=== PATIENT | female | born 1980 | race Caucasian/White ===

== ENCOUNTER 2016-02-13 14:52 | Emergency (ER) | payer SELFPAY ==
[~2016-02-13] VITALS: Wt 68.0 kg
[~2016-02-13 14:52] MED LIST: FERR325C PO; IRON1TAB78 PO; NITR-58 PO; ONDA4TAB8 PO
== END 2016-02-13 17:42 | disposition left against medical advice (07) ==
LOC: FTE 14:52
DX: Z53.21 Procedure and treatment not carried out due to patient leaving prior to being seen by health care provider (principal)

== ENCOUNTER 2016-03-24 11:33 | Outpatient (CLI) | payer MEDICAID ==
[~2016-03-24] VITALS: Ht 162.6 cm; Wt 71.6 kg
[~2016-03-24 11:33] MED LIST changes: -NITR-58 PO
[2016-03-24 11:40] VITALS: BP 107/69; PULSE 86; RESP 17
[2016-03-24 11:41] VITALS: Ht 162.6 cm; Wt 71.6 kg
--- NOTE | 2016-03-24 13:31 | TRIAGE ---
OB Triage Datetime Report Generated by CPN: 03/24/2016 13:31 Datetime: 03/24/2016 13:00 Maternal Assessment Level of Consciousness: Fully Conscious DTR's/Clonus: DTRs 2+; No Clonus Headache: Denies Blurred Vision: No Nausea/Vomiting: Denies RUQ Epigastric Pain: Denies Facial Edema: None Labor Evaluation Frequency: 0 Monitor Mode: External Pattern: Normal: <= 5 Contractions in 10 Minutes Resting Tone [place]: Relaxed Heart Rate FHR Baseline Rate: 135 Monitor Mode: External US FHR Baseline Changes: No Baseline Change Variability: Moderate 6-25 bpm Accelerations: 15X15 Decelerations: None Category: Category I Pain Assessment Pain Scale: 0 Pain Presence: None/Denies Pain Type: N/A Membrane Status: Intact Datetime: 03/24/2016 12:00 Labor Evaluation Frequency: X1 Monitor Mode: External Duration (sec)2399: 60 Quality: Mild Pattern: Normal: <= 5 Contractions in 10 Minutes Resting Tone [place]: Relaxed Heart Rate FHR Baseline Rate: 140 Monitor Mode: External US FHR Baseline Changes: No Baseline Change Variability: Moderate 6-25 bpm Accelerations: 15X15 Decelerations: None Category: Category I Pain Assessment Pain Scale: 0 Pain Presence: None/Denies Pain Type: N/A Datetime: 03/24/2016 11:45 Assessment Type: Triage Maternal Assessment Level of Consciousness: Fully Conscious DTR's/Clonus: DTRs 2+; No Clonus Headache: Denies Blurred Vision: No Respiratory Effort: Unlabored; Regular Rhythm Breath Sounds, Left: Clear and Equal Breath Sounds, Right: Clear and Equal Nausea/Vomiting: Denies RUQ Epigastric Pain: Denies Lower Extremities Edema: None Degree: None Upper Extremities Edema: None Degree: None Facial Edema: None Fall Risk Assessment History of Falling: (0) No Secondary Diagnosis: (0) No Ambulatory Aid: (0) Bedrest/Nurse Assist IV Therapy: (0) No Gait: (0) Normal/Bedrest/Immobile Mental Status: (0) Oriented to Own Ability Fall Score: 0 Fall Risk Score Definition: No Risk: No action required Datetime: 03/24/2016 11:43 Vaginal Exam Dilatation (cms): 1.5 Effacement (%): 60 Station: -3 Exam By: NATASHA Vaginal Bleeding: Normal Show Cervix, Consistency: Soft Cervix, Position: Posterior Presentation 'A': Cephalic Datetime: 03/24/2016 11:35 Time of Arrival: 03/24/2016 11:20 EGA: 40.4 Arrived By: Ambulatory Arrived From: Home Chief Complaint: PT PRESENTS TO TRIAGE COMPLAINING OF SPOTTING SINCE 929 THIS MORNING Movement: Present Contractions: Denies/Absent Rupture of Membranes: Unsure Vaginal Bleeding: Scant Vaginal Discharge: Present Recent Sexual Intercouse: Denies Abdominal Trauma: Not Applicable Patient Complaints: None Time Provider Notified: 03/24/2016 11:56 Provider Notified: CK Initial Plan: EFM/SVE/BPP Datetime: 03/24/2016 11:34 Pain Assessment Pain Scale: 0 Pain Presence: None/Denies Pain Type: N/A Datetime: 02/13/2016 14:14 EGA: 34.6 Datetime: 02/13/2016 14:10 Fall Score: 0 Fall Risk Score Definition: No Risk: No action required
--- NOTE | 2016-03-24 13:32 | QN ---
Documentation Comment Laborist Dr Belalmy's pt 35 y.o. with an IUP at 40 w 4d c/o spotting. Pt reports rare contractions. +FM. PMHx: none. PSHx: none. POBHx: x 1 at 42 weeks. NKDA. BP 107/69. T= 98.3. HANNAH 11.0 ( done by me) NST: baseline 140 bpm with accels to 170 bpm. No decels. 2 UC's over 2 hrs. CX: 60%/ 1-2 cm/ -3 station. Intact. A: IUP at 40w 4d. False labor. P: D/C home. Labor precautions reviewed. FANNIE STOVER MD Mar 24, 2016 13:31
== END 2016-03-24 13:30 | disposition home or self-care (01) ==
LOC: OBT 11:33 → L-D 11:33 → OBT 13:30
PROVIDERS: ATTEND Obstetrics & Gynecology
DX: O47.1 False labor at or after 37 completed weeks of gestation (principal); O48.0 Post-term pregnancy; O09.523 Supervision of elderly multigravida, third trimester; Z3A.40 40 weeks gestation of pregnancy
CPT/HCPCS: G0463

== ENCOUNTER 2016-03-25 12:56 | Inpatient (IN) | payer MEDICAID ==
[~2016-03-25] VITALS: Ht 162.6 cm; Wt 70.9 kg
[2016-03-25] MEDS: LACTATED RINGER'S 1,000 ML IV* SCH (03:40)
[~2016-03-25 12:56] MED LIST changes: -IRON1TAB78 PO; -ONDA4TAB8 PO
[2016-03-25 13:07] VITALS: BP 97/59; PULSE 82; RESP 18; Ht 162.6 cm; Wt 70.9 kg
--- NOTE | 2016-03-25 13:40 | TRIAGE ---
OB Triage Datetime Report Generated by CPN: 03/25/2016 13:40 Datetime: 03/25/2016 13:11 Dilatation (cms): 3.0 Effacement (%): 60 Station: -2 Exam By: PRABHA Membrane Status: Ruptured Membranes Rupture Method: Spontaneous Amniotic Fluid Amount: Moderate Vaginal Bleeding: None Pool: Positive Nitrazine: Positive Cervix, Consistency: Moderate Cervix, Position: Posterior Datetime: 03/25/2016 13:04 Assessment Type: Triage Level of Consciousness: Fully Conscious DTR's/Clonus: DTRs 2+; No Clonus Headache: Denies Blurred Vision: No Respiratory Effort: Unlabored; Regular Rhythm Breath Sounds, Left: Clear and Equal Breath Sounds, Right: Clear and Equal Nausea/Vomiting: Denies RUQ Epigastric Pain: Denies Lower Extremities Edema: None Degree: None Upper Extremities Edema: None Degree: None Facial Edema: None History of Falling: (0) No Secondary Diagnosis: (0) No Ambulatory Aid: (0) Bedrest/Nurse Assist IV Therapy: (0) No Gait: (0) Normal/Bedrest/Immobile Mental Status: (0) Oriented to Own Ability Fall Score: 0 Fall Risk Score Definition: No Risk: No action required Datetime: 03/25/2016 13:03 Time of Arrival: 03/25/2016 12:55 EGA: 40.5 Arrived By: Ambulatory Arrived From: Home Movement: Present Contractions: Irregular Rupture of Membranes: Unsure Vaginal Bleeding: None Vaginal Discharge: Present Recent Sexual Intercouse: Denies Abdominal Trauma: Not Applicable Patient Complaints: Contractions; Cramping; Back Pain Time Provider Notified: 03/25/2016 13:15 Provider Notified: DENZEL Initial Plan: EFM SVE Datetime: 03/24/2016 13:16 Frequency: 0 Monitor Mode: External Pattern: Normal: <= 5 Contractions in 10 Minutes Resting Tone [place]: Relaxed FHR Baseline Rate: 135 Monitor Mode: External US FHR Baseline Changes: No Baseline Change Variability: Moderate 6-25 bpm Accelerations: 15X15 Decelerations: None Category: Category I Pain Scale: 0 Pain Presence: None/Denies Pain Type: N/A
[2016-03-25] MEDS ORDERED: LACTATED RINGER'S 1,000 ML IV PRN (14:03)
[2016-03-25 14:14] LABS: BASOPHILS % 0.5 % (0.0-2.0); EOSINOPHILS # 0.1 10^3/ul (0.0-0.5); EOSINOPHILS % 0.9 % (0.0-7.0); HEMATOCRIT 35.2 % (37.0-47.0); HEMOGLOBIN 11.7 g/dl (12.0-16.0); LYMPHOCYTES # 1.5 10^3/ul (0.8-2.9); LYMPHOCYTES % 22.8 % (15.0-51.0); MEAN CORPUSCULAR HEMOGLOBIN 27.4 pg (29.0-33.0); MEAN CORPUSCULAR HGB CONC 33.3 g/dl (32.0-37.0); MEAN CORPUSCULAR VOLUME 82.3 fl (82.0-101.0); MEAN PLATELET VOLUME 11.6 fl (7.4-10.4); MONOCYTE # 0.6 10^3/ul (0.3-0.9); MONOCYTES % 8.9 % (0.0-11.0); NEUTROPHIL # 4.5 10^3/ul (1.6-7.5); NEUTROPHILS % 66.9 % (39.0-77.0); PLATELET COUNT 142 10^3/UL (140-440); RED BLOOD COUNT 4.28 10^6/ul (4.20-5.40); RED CELL DISTRIBUTION WIDTH 17.7 % (11.5-14.5); UNCORRECTED WBC 6.7 10^3/ul (4.8-10.8); WHITE BLOOD COUNT 6.7 10^3/ul (4.8-10.8)
[2016-03-25 14:17] LABS: INR 1.03; PROTIME 13.5 Sec (12.2-14.2); PT RATIO 1.1
[2016-03-25 14:18] LABS: PARTIAL THROMBOPLASTIN TIME 27.1 Sec (25.0-35.0)
[2016-03-25 14:19] LABS: CONDITION 1; LH ANALYZER COMMENTS 1; SUSPECT 1
[2016-03-25] MEDS ORDERED: OXYCODONE/ACETAMINOPHEN (5/325) TAB PO PRN (14:30)
[2016-03-25] MEDS ORDERED: OXYTOCIN 30 UNITS/LR 500 ML IV SCH ×2 (14:30→23:50)
[2016-03-25] MEDS ORDERED: MISOPROSTOL 200 MCG TAB PR PRN (14:30)
[2016-03-25] MEDS ORDERED: CARBOPROST 250 MCG INJ IM PRN (14:30)
[2016-03-25] MEDS ORDERED: IBUPROFEN 600 MG TAB PO PRN (14:30)
[2016-03-25] MEDS ORDERED: OXYTOCIN 30 UNITS/LR 500 ML IV PRN (14:30)
[2016-03-25] MEDS ORDERED: LIDOCAINE 1% (MPF) 30 ML INJ INJ PRN (14:30)
[2016-03-25] MEDS ORDERED: METHYLERGONOVINE 0.2 MG INJ IM PRN (14:30)
[2016-03-25] MEDS ORDERED: AMPICILLIN 2 GM/NS (PMX) 100 ML IV ONE (14:30)
[2016-03-25] MEDS ORDERED: BUTORPHANOL 2 MG INJ IV PRN (14:30)
[2016-03-25] MEDS: LACTATED RINGER'S 1,000 ML IV SCH ×2 (14:38→21:19)
--- NOTE | 2016-03-25 16:09 | RADRPT ---
PROCEDURE: US OB. CLINICAL INDICATION: , size and dates. TECHNIQUE: Multiple sonographic images of the pelvis were obtained. Transabdominal imaging only w as performed. The images were reviewed on a PACS workstation. COMPARISON: 12/30/2015 FINDINGS: Assigned due date is 03/20/2016. Estimated gestational age by assigned due date is 40 weeks 5 days. There is a single viable intrauterine gestation. Cardiac activity is present with 141 beats per min [id number]. There is a cephalic presentation. Measurements were made in order to determine age. The results are as follows: BPD = 9.2 cm. Corresponding gestational age is 37.3 weeks. HC = 33.9 cm. Corresponding gestational age is 39.0 weeks. AC = 36.2 cm. Corresponding gestational age is 40.1 weeks. FL = 7.9. cm. Corresponding gestational age is 40.3 weeks. Estimated gestational age of approximately 39 weeks 2 days. The estimated date of delivery is 03/30/2016. The EFW = 38 x 4 g. weight is 59 percentile by assigned due date. The placenta is anterior. There is no evidence for an abruption or placenta previa. There is a low normal amount of amniotic fluid with an HANNAH = 6.0 cm. There are no adnexal masses. IMPRESSION: 1. Single, live, intrauterine gestation estimated gestational age of 39 weeks 2 days by ultrasound criteria. 2. The estimated date of delivery is 03/30/2016. RPTAT: QQ .Sushant Olea MD, Date Time Electronically viewed and signed by .Sushant Olea MD, on 03/25/2016 16:09 .M/
[2016-03-25] MEDS ORDERED: FENTAnyl 2MCG/ML-ROPIV 0.2% 100 ML ONE (16:40)
--- NOTE | 2016-03-25 16:45 | HP ---
Date/Time of Note Date/Time of Note DATE: 03/25/16 TIME: 16:44 OB - History Hx of Present Free Text/Dictation @40+wks GA with SROM : 2 Para: 1 Ultrasounds: Normal mid trimester US Obstetrical Complications: None Medical Complications: None Past Family/Social History * Past Medical, Surgical, Family and Obstetric Histories reviewed from chart. OB Admission Exam Vital Signs Vital Signs Vital Signs Date Time Temp Pulse Resp B/P Pulse Ox O2 Delivery O2 Flow Rate FiO2 03/25/16 13:07 98.6 82 18 97/59 99 Room Air Physical Exam Abdomen: WNL Extremities: Normal Cervical Dilatation: 3cm Effacement: 75% Station: -1 Membranes: Ruptured Heart Rate: 140's Accelerations: Accelerations Present Decelerations: No Decelerations Varibility: Moderate Contractions on Admission: 6-10 Minutes Apart Last 72 hours Lab Results CBC & BMP 03/25/16 13:25 OB Assessment/Plan Reason for admission: active labor Plan: Expectant Management Induction Method: per Pitocin Protocol SHALINI MAHONEY M.D. Mar 25, 2016 16:45
[2016-03-25] MEDS ORDERED: ONDANSETRON 4 MG INJ IV PRN (17:30)
[2016-03-25] MEDS ORDERED: ZOLPIDEM 5 MG TAB PO PRN (17:30)
[2016-03-25] MEDS ORDERED: FENTAnyl 2MCG/ML-ROPIV 0.2% 100 ML BAG EPI SCH (17:30)
[2016-03-25] MEDS ORDERED: KETOROLAC 30 MG INJ IV PRN (17:30)
[2016-03-25] MEDS ORDERED: NALOXONE (0.4 MG/ML) INJ IV PRN (17:30)
[2016-03-25] MEDS ORDERED: HYDROmorphONE 1 MG/ML SYG IV PRN ×2 (17:30)
[2016-03-25] MEDS ORDERED: DIPHENHYDRAMINE 50 MG INJ IV PRN (17:30)
[2016-03-25] MEDS: AMPICILLIN 1 GM/NS (PMX) 50 ML IV SCH ×3 (17:53→21:40)
[2016-03-25] MEDS ORDERED: EPHEDrine SULFATE 50 MG/5 ML SYG IV PRN (19:00)
--- NOTE | 2016-03-25 23:56 | LDN ---
Date/Time of Note Date/Time of Note DATE: 03/25/16 TIME: 23:54 Delivery Summary of a viable baby girl, weighing 3815 grams, or 8# 7oz, 19.5" long and with Apgars of 8/9. Placenta Delivered: Spontaneously Meconium: none Perineum intact?: No Perineal laceration: 1 Perineal laceration repair: Very superficial 1st degree laceration repaired with 3-0 chromic. Anesthesia type: Epidural Estimated blood loss: 350 Sponge & Needle done & correct: Yes All needle counts correct: Yes Any foreign bodies felt in the: No (vagina) Problems: Infant Delivery Information Sex Sex: female Apgars 1 Minute: 8 5 Minute: 9 Suctioning Nose & mouth suctioned at xiomara: Yes Delee suction performed: No Umbilical Cord Umbilical cord with: 3 Vessels Cord Blood was obtained: Yes Mother & Baby Disposition Disposition Mom & Baby to Maternity; Good: Yes Baby to NICU: No FANNIE STOVER MD Mar 25, 2016 23:56
[2016-03-26] MEDS ORDERED: CARBOPROST 250 MCG INJ IM PRN
[2016-03-26] MEDS ORDERED: LANOLIN 7 GM TUBE TOP PRN
[2016-03-26] MEDS ORDERED: OXYTOCIN 30 UNITS/LR 500 ML IV PRN
[2016-03-26] MEDS ORDERED: OXYCODONE/ASPIRIN (4.88/325) TAB PO PRN
[2016-03-26] MEDS ORDERED: MISOPROSTOL 200 MCG TAB PR PRN
[2016-03-26] MEDS ORDERED: METHYLERGONOVINE 0.2 MG INJ IM PRN
[2016-03-26 02:10] VITALS: BP 96/52; PULSE 74; RESP 18
[2016-03-26] MEDS: IBUPROFEN 600 MG TAB PO SCH ×5 (02:30→23:57)
[2016-03-26 04:00] VITALS: BP 95/48; PULSE 99; RESP 18
[2016-03-26] MEDS: LACTATED RINGER'S 1,000 ML IV* SCH ×2 (07:50→15:50)
[2016-03-26 08:55] VITALS: BP 96/53; PULSE 75; RESP 18
--- NOTE | 2016-03-26 09:10 | DS ---
Date/Time of Note Date/Time of Note DATE: 03/26/16 TIME: 09:10 Discharge Summary Admission/Discharge Info Admit Date/Time Mar 25, 2016 at 13:15 Discharge Date/Time Final Diagnosis term preg Patient Condition: Stable Hospital Course NSD Home Meds Discontinued Reported Medications Ferrous Sulfate (Iron) 325 Mg Capsule.er, 325 MG PO, CAP 02/13/16 Iron,Carbonyl/Vit C/Vit B12/Fa (IRON 100 PLUS TABLET) 1 Each Tablet, 1 EACH PO, TAB 02/13/16 Discontinued Scripts Ondansetron Hcl* (Zofran*) 4 Mg Tablet, 4 MG PO Q6H for NAUSEA AND/OR VOMITING, #30 TAB Prov:OSCAR FALCON PA-C 09/21/15 Pending Labs Laboratory Tests Test 03/25/16 13:25 Activated Partial Thromboplast Time 27.1Sec (25.0-35.0) Basophils # 0.010^3/ul (0.0-0.1) Basophils % 0.5% (0.0-2.0) Blood Morphology Comment Eosinophils # 0.110^3/ul (0.0-0.5) Eosinophils % 0.9% (0.0-7.0) Hematocrit 35.2% (37.0-47.0) Hemoglobin 11.7g/dl (12.0-16.0) Hepatitis B Surface Antigen NEGATIVE (NEGATIVE) INR International Normalized Ratio 1.03 Lymphocytes # 1.510^3/ul (0.8-2.9) Lymphocytes % 22.8% (15.0-51.0) Mean Corpuscular Hemoglobin 27.4pg (29.0-33.0) Mean Corpuscular Hemoglobin Concent 33.3g/dl (32.0-37.0) Mean Corpuscular Volume 82.3fl (82.0-101.0) Mean Platelet Volume 11.6fl (7.4-10.4) Monocytes # 0.610^3/ul (0.3-0.9) Monocytes % 8.9% (0.0-11.0) Neutrophils # 4.510^3/ul (1.6-7.5) Neutrophils % 66.9% (39.0-77.0) Nucleated Red Blood Cells # 0.010^3/ul (0.0-0.0) Nucleated Red Blood Cells % 0.0/100WBC (0.0-0.0) Platelet Count 46684^3/UL (140-440) Prothrombin Time 13.5Sec (12.2-14.2) Prothrombin Time Ratio 1.1 Rapid Plasma Reagin NONREACTIVE (NR) Red Blood Count 4.2810^6/ul (4.20-5.40) Red Cell Distribution Width 17.7% (11.5-14.5) White Blood Count 6.710^3/ul (4.8-10.8) DELTA TOBIAS MD Mar 26, 2016 09:10
[2016-03-26 12:17] VITALS: BP 101/58; PULSE 63; RESP 18
[2016-03-26 16:30] VITALS: BP 101/58; PULSE 88; RESP 18
[2016-03-26 19:45] VITALS: BP 103/52; PULSE 64; RESP 17
[2016-03-27 04:25] VITALS: BP 101/57; PULSE 67; RESP 18
[2016-03-27] MEDS: IBUPROFEN 600 MG TAB PO SCH ×3 (05:50→18:11)
[2016-03-27 07:33] LABS: BASOPHILS % 0.5 % (0.0-2.0); EOSINOPHILS # 0.1 10^3/ul (0.0-0.5); EOSINOPHILS % 1.8 % (0.0-7.0); HEMATOCRIT 32.2 % (37.0-47.0); HEMOGLOBIN 10.7 g/dl (12.0-16.0); LYMPHOCYTES # 1.7 10^3/ul (0.8-2.9); LYMPHOCYTES % 24.9 % (15.0-51.0); MEAN CORPUSCULAR HEMOGLOBIN 27.9 pg (29.0-33.0); MEAN CORPUSCULAR HGB CONC 33.3 g/dl (32.0-37.0); MEAN CORPUSCULAR VOLUME 83.8 fl (82.0-101.0); MEAN PLATELET VOLUME 11.8 fl (7.4-10.4); MONOCYTE # 0.7 10^3/ul (0.3-0.9); MONOCYTES % 10.5 % (0.0-11.0); NEUTROPHIL # 4.3 10^3/ul (1.6-7.5); NEUTROPHILS % 62.3 % (39.0-77.0); PLATELET COUNT 133 10^3/UL (140-440); RED BLOOD COUNT 3.84 10^6/ul (4.20-5.40); RED CELL DISTRIBUTION WIDTH 17.9 % (11.5-14.5); UNCORRECTED WBC 6.9 10^3/ul (4.8-10.8); WHITE BLOOD COUNT 6.9 10^3/ul (4.8-10.8)
[2016-03-27 07:57] LABS: CONDITION 1
[2016-03-27 07:58] LABS: LH ANALYZER COMMENTS 1
[2016-03-27 08:00] VITALS: BP 101/70; PULSE 62; RESP 18
[2016-03-27] MEDS ORDERED: DIPHTH/TET/ACEL PERTUSS (ADULT) 0.5 ML VIAL IM* ONE (09:00)
[2016-03-27 13:27] LABS: RUBELLA ANTIBODY - IGG 2.79
[2016-03-27 16:00] VITALS: BP 116/63; PULSE 73; RESP 18
[2016-03-28] MEDS ORDERED: INFLUENZA VIRUS VACCINE 0.5 ML (DISPENSING) IM* ONE (09:00)
== END 2016-03-27 19:01 | disposition home or self-care (01) | DRG 775 ==
LOC: OBT 12:56 → L-D 12:56 → OBT 13:15 → L-D 15:07 → PP1 03-26 02:07
PROVIDERS: ADMIT Obstetrics & Gynecology; ATTEND Obstetrics & Gynecology
PROC: 10E0XZZ Delivery of Products of Conception, External Approach (ICD-10-PCS; principal; 2016-03-25)
PROC: 0HQ9XZZ Repair Perineum Skin, External Approach (ICD-10-PCS; 2016-03-25)
DX: O48.0 Post-term pregnancy (principal); O70.0 First degree perineal laceration during delivery; Z3A.40 40 weeks gestation of pregnancy; Z37.0 Single live birth
CPT/HCPCS: 62319; 76815; 85025; 85610; 85730; 86592; 86762; 86900; 86901; 87340; 90715; A4310; J0290; J2590; J3010; J7120